=== PATIENT | female | born 1980 | race African-American/Black ===

== ENCOUNTER 2025-03-06 01:19 | Emergency (ER) | payer OTHER ==
[2025-03-06 01:28] VITALS: TEMP 98; BMI 35.9
[2025-03-06] MEDS ORDERED: ACETAMINOPHEN 325 MG TABLET (FP) ONE (02:17)
[2025-03-06] MEDS ORDERED: LIDOCAINE 5% TOPICAL PATCH ONE (02:17)
[2025-03-06] MEDS: LIDOCAINE 5% TOPICAL PATCH TP ONE (02:23)
[2025-03-06] MEDS: ACETAMINOPHEN 500 MG TABLET (FP) PO ONE (02:23)
[2025-03-06] MEDS: KETOROLAC TROMETHAMINE 30 MG/1 ML VIAL IM ONE (03:25)
[2025-03-06 03:40] VITALS: BP 126/78; PULSE 66; RESP 16
[2025-03-06] MEDS ORDERED: LIDOCAINE PATCH REMOVAL MC SCH (22:00)
== END 2025-03-06 03:58 | disposition home or self-care (01) ==
LOC: JER 01:19
DX: M25.561 Pain in right knee (principal); M25.562 Pain in left knee; M54.2 Cervicalgia; R51.9 Headache, unspecified; V43.62XA Car passenger injured in collision with other type car in traffic accident, initial encounter
CPT/HCPCS: 99283-25